=== PATIENT | male | born 1955 | race Caucasian/White ===

== ENCOUNTER → 2023-08-10 17:38 | Outpatient (REF) | payer MEDICARE, OTHER, SELFPAY | LOC: CLAB 17:38 | PROVIDERS: ATTENDING PHYSICIAN Orthopaedic Surgery Hand Surgery; FAMILY PHYSICIAN Internal Medicine | DX: M71.43 Calcium deposit in bursa, wrist (principal) | CPT/HCPCS: 88304 ==